=== PATIENT | female | born 1990 ===

== ENCOUNTER → 2019-11-02 15:33 | Outpatient (CLI) | payer SELFPAY ==
--- NOTE | ~2019-11-02 | US_ITS ---
EXAMINATION: US pelvic complete EXAM DATE: 11/02/2019 15:58 INDICATION: Pelvic pain. TECHNIQUE: Pelvic transabdominal sonogram was performed. There are multiple grayscale and Doppler im ages available for interpretation. There is no prior study for comparison. FINDINGS: Uterus measures 9.5 x 3.6 x 4.6 cm, and is morphologically normal. Endometrial stripe shakira sures 7 mm, within normal limits. There is no free pelvic fluid. Right adnexa: The ovary measures 3.5 x 2.0 x 2.0 cm and is morphologically normal. Ovarian vascular f low confirmed. Left adnexa: The ovary measures 2.7 x 1.1 x 2.5 cm and is morphologically normal. Ovarian vascular fl ow confirmed. IMPRESSION: 1. Unremarkable pelvic ultrasound exam. Reviewed, dictated and finalized at location A.
== END ==
PROVIDERS: Visit Provider Registered Nurse
DX: R10.2 Pelvic and perineal pain (principal)
CPT/HCPCS: 76856